=== PATIENT | female | born 1970 | race African-American/Black ===

== ENCOUNTER → 2017-07-26 | Outpatient (CLI) | payer OTHER ==
[~2017-07-26] MED LIST: DEPO-ESTRAD5 MG/1 ML IM; FLEXERIL PO; OVRAL PO
== END ==
LOC: RAD 06-30 10:00
DX: Z12.31 Encounter for screening mammogram for malignant neoplasm of breast (principal)

== ENCOUNTER → 2018-07-14 | Outpatient (CLI) | payer OTHER | LOC: RAD 02:54 | DX: Z12.31 Encounter for screening mammogram for malignant neoplasm of breast (principal) ==

== ENCOUNTER → 2018-07-21 | Outpatient (CLI) | payer OTHER | LOC: RAD 01:57 | DX: R92.8 Other abnormal and inconclusive findings on diagnostic imaging of breast (principal) ==

== ENCOUNTER → 2019-08-22 | Outpatient (CLI) | payer OTHER | LOC: RAD 08:48 → BC 15:00 | DX: Z12.31 Encounter for screening mammogram for malignant neoplasm of breast (principal) ==

== ENCOUNTER → 2020-09-05 | Outpatient (CLI) | payer OTHER | LOC: BC 07:40 | PROVIDERS: ATTEND Family Medicine | DX: Z12.31 Encounter for screening mammogram for malignant neoplasm of breast (principal) ==